=== PATIENT | male | born 1950 | race Asian ===

== ENCOUNTER → 2019-06-06 | Outpatient (CLI) | payer MEDICARE ==
--- NOTE | 2019-06-06 11:18 | Diagnostic Imaging Report ---
PROCEDURE: Ultrasound-guided biopsy Procedural Personnel Attending physician(s): Supriya Laird MD Fellow physician(s): None Resident physician(s): None Advanced practice provider(s): None Pre-procedure diagnosis: Right parotid nodule Post-procedure diagnosis: Same Indication: Histopathologic diagnosis Previous biopsy of same target (QCDR): No Additional clinical history: None Complications: No immediate complications. IMPRESSION: Ultrasound-guided biopsy of right anterior parotid nodule. Plan: FNA specimen(s) sent for evaluation. FNA sent for cultures. PROCEDURE SUMMARY: - Percutaneous US-guided right anterior parotid nodule biopsy - Additional procedure(s): None PROCEDURE DETAILS: Pre-procedure Reference imaging for biopsy target: Outside neck CT Consent: Informed consent for the procedure including risks, benefits and alternatives was obtained and time-out was performed prior to the procedure. Preparation: The site was prepared and draped using maximal sterile barrier technique including cutaneous antisepsis. Anesthesia/sedation Level of anesthesia/sedation: No sedation Imaging prior to biopsy The patient was positioned supine. Initial ultrasound was performed. Biopsy target: - Maximal diameter (cm): 1 - Location: Right anterior parotid gland Other findings: None Biopsy Local anesthesia was administered. Under US guidance, the biopsy needle was advanced to the target and biopsy was performed. Coaxial needle: None Fine needle aspiration device: 22g Chiba Fine needle size: 22 gauge 9cm Number of FNA specimens: 3 On-site biopsy touch preparation: Yes Additional sampling recommendations: None Preliminary assessment of sample adequacy: Adequate Needle removal The biopsy needle was removed and a sterile dressing was applied. Tract embolization: None Imaging following biopsy Immediate post-biopsy ultrasound was performed. Post-biopsy imaging findings: No hematoma Additional Details Additional description of procedure: None Equipment details: None Specimens removed: Biopsy samples as detailed above Estimated blood loss (mL): Less than 10 Standardized report: [email or web address] Attestation Signer name: Supriya Laird MD I attest that I was present for the entire procedure. I reviewed the stored images and agree with the report as written. Signed by: Supriya Laird MD on 06/06/2019 11:15 AM
== END ==
LOC: US 08:06
PROVIDERS: ATTEND Otolaryngology
DX: K11.8 Other diseases of salivary glands (principal)
CPT/HCPCS: 10005; 87071; 87075; 87205; 88172; 88173; 88305

== ENCOUNTER → 2019-06-22 | Outpatient (CLI) | payer MEDICARE ==
--- NOTE | 2019-06-22 16:56 | Diagnostic Imaging Report ---
Right parotid ultrasound. History: Right parotid mass, prior FNA. Comparison: FNA 06/06/2019. Discussion: Transverse and longitudinal images of the right parotid gland were obtained demonstrating normal echogenicity of the gland. Several mobile hypoechoic lesions are present, the largest posteriorly measuring 1.6 x 0.8 x 1.1 cm and the second largest anteriorly measuring 1.0 x 0.5 x 0.7 cm, which was previously biopsied. Additional subcentimeter hypoechoic lesions are present. IMPRESSION: Multiple right parotid hypoechoic nodules/complex cysts, similar in appearance compared to prior FNA. Signed by: Eddy Donovan on 06/22/2019 4:53 PM
== END ==
LOC: US 14:49
PROVIDERS: ATTEND Otolaryngology
DX: K11.8 Other diseases of salivary glands (principal)
CPT/HCPCS: 76536

== ENCOUNTER → 2021-02-12 | Outpatient (CLI) | payer MEDICARE | LOC: US 11:54 | PROVIDERS: ATTEND Otolaryngology | DX: K11.8 Other diseases of salivary glands (principal) | CPT/HCPCS: 10005; 88112; 88172; 88173; 88305 ==

== ENCOUNTER → 2022-05-28 | Day surgery (SDC) | payer MEDICARE ==
[2022-05-23 09:21] LABS: BASOPHILS # (AUTO) 0.1 (0.0-0.1); BASOPHILS % 0.6 % (0.0-1.0); EOSINOPHILS # (AUTO) 0.4 (0.0-0.4); EOSINOPHILS % 4.5 % (0.0-6.0); HEMOGLOBIN 15.7 g/dL (14.0-18.0); LYMPHOCYTES % 34.9 % (18.0-39.1); MEAN CORPUSCULAR HEMOGLOBIN 29.6 pg (28-32); MEAN CORPUSCULAR HGB CONC 32.7 g/dL (31-35); MEAN CORPUSCULAR VOLUME 90.6 fL (81-99); MONOCYTES # (AUTO) 0.7 (0.2-0.8); MONOCYTES % 7.7 % (4.4-11.3); NEUTROPHILS # (AUTO) 4.5 (2.1-6.9); NEUTROPHILS % 52.2 % (38.7-80.0); PLATELET COUNT 179 x10e3/uL (140-360); RED CELL DISTRIBUTION WIDTH 12.8 % (11.7-14.4)
[~2022-05-28] MED LIST: EPHEDRINE SULFATE INJ 50 MG/ML VIAL ONE; GLUCAGON FOR INJ 1 MG VIAL ONE; HYOSCYAMINE SULFATE 0.5 MG/ML INJ ONE; LIDOCAINE HCL 2% LOCAL INJ 5 ML SDV VIAL INJ ONE; MULTI-VITAMIN1 EACH PO; PHENYLEPHRINE HCL 1% 10 MG/ML VIAL ONE; PROPOFOL IV EMULSION 10 MG/ML 20 ML VIAL ONE; VASOPRESSIN INJ 20 UNIT/ML VIAL ONE; VITAMIN B-121000 MCG PO; VITAMIN C1000 MG PO
[2022-05-28 13:05] VITALS: BP 118/88
== END | disposition home or self-care (01) ==
LOC: OR 08:41
PROVIDERS: ATTEND Internal Medicine Gastroenterology
DX: Z09 Encounter for follow-up examination after completed treatment for conditions other than malignant neoplasm (principal); D12.2 Benign neoplasm of ascending colon; K57.30 Diverticulosis of large intestine without perforation or abscess without bleeding; K64.8 Other hemorrhoids; K59.00 Constipation, unspecified; Z71.3 Dietary counseling and surveillance; R00.1 Bradycardia, unspecified; J30.2 Other seasonal allergic rhinitis; F41.9 Anxiety disorder, unspecified; Z01.810 Encounter for preprocedural cardiovascular examination; Z01.812 Encounter for preprocedural laboratory examination; Z20.822 Contact with and (suspected) exposure to COVID-19; Z68.29 Body mass index [BMI] 29.0-29.9, adult
CPT/HCPCS: 36415; 45380; 45385; 85025; 93005; J1610; J1980; J2001; J2370; J2704; 45378